=== PATIENT | male | born 1995 ===

== ENCOUNTER 2016-11-21 20:22 | Emergency (ER) | payer SELFPAY ==
[~2016-11-21] VITALS: Ht 162.6 cm; Wt 57.0 kg
[2016-11-21 20:37] VITALS: Ht 162.6 cm; Wt 57.0 kg
[2016-11-21] MEDS ORDERED: ACETAMINOPHEN 500 MG TAB PO STA (21:33)
--- NOTE | 2016-11-21 22:14 | RADRPT ---
PROCEDURE: Abdominal ultrasound CLINICAL INDICATION: Abdominal pain TECHNIQUE: Bedoya scale ultrasound images of the four abdominal quadrant was performed for evaluatio n of ascites/free fluid. COMPARISON: None. FINDINGS: No ascites/free fluid is seen. IMPRESSION: No free fluid is seen. RPTAT: AADD .Bobo Parikh MD, MD Date Time Electronically viewed and signed by .Bobo Parikh MD, on 11/21/2016 22:14 .B/
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
--- NOTE | 2016-11-22 00:50 | RADRPT ---
PROCEDURE: XR shoulder. CLINICAL INDICATION: Pain TECHNIQUE: Three views of the left shoulder were performed. COMPARISON: Left clavicle series 11/21/2016 FINDINGS: There is normal mineralization and alignment. No fracture or osseous lesion is identified. The joint spaces are preserved. The soft tissues are unremarkable. RPTAT:HJJR IMPRESSION: Unremarkable left shoulder series. Physician Rob Date Time Electronically viewed and signed by Storm Caba Physician on 11/22/2016 00:50 JR/
[2016-11-22] MEDS ORDERED: ACET500C5 PO (01:00)
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
[2016-11-22 01:20] VITALS: BP 135/78; PULSE 71; RESP 18
== END 2016-11-22 01:20 | disposition home or self-care (01) ==
LOC: FTE 20:22
DX: S09.90XA Unspecified injury of head, initial encounter (principal); S49.92XA Unspecified injury of left shoulder and upper arm, initial encounter; S19.9XXA Unspecified injury of neck, initial encounter; S20.211A Contusion of right front wall of thorax, initial encounter; V49.40XA Driver injured in collision with unspecified motor vehicles in traffic accident, initial encounter
CPT/HCPCS: 70450; 71110; 72125; 73000; 73030; 76705